=== PATIENT | female | born 1995 | race Caucasian/White ===

== ENCOUNTER 2020-05-24 23:24 | Emergency (ER) | payer OTHER ==
[2020-05-25] MEDS ORDERED: Ibuprofen 800 MG TAB ONE (00:03)
[2020-05-25] MEDS ORDERED: Acetaminophen 325 MG/10.15 ML UDCUP ONE (00:03)
[2020-05-25] MEDS ORDERED: Acetaminophen 325 MG TAB ONE (00:05)
== END 2020-05-25 00:06 | disposition home or self-care (01) ==
LOC: ERS 23:24
DX: M62.830 Muscle spasm of back (principal)
CPT/HCPCS: 99283

== ENCOUNTER 2020-07-15 10:57 | Outpatient (CLI) | payer OTHER | END 2020-07-15 10:58 | disposition home or self-care (01) | LOC: TBSIIMAG 10:57 | PROVIDERS: ATTEND Family Medicine | DX: M51.17 Intervertebral disc disorders with radiculopathy, lumbosacral region (principal); S23.3XXD Sprain of ligaments of thoracic spine, subsequent encounter | CPT/HCPCS: 72148 ==